=== PATIENT | male | born 1970 | race Caucasian/White ===

== ENCOUNTER → 2018-02-01 10:10 | Outpatient (CLI) | payer BC, SELFPAY ==
--- NOTE | 2018-02-01 10:17 | XR_ITS ---
XR KUB HISTORY: ITS.REASON: KIDNEY STONES ORDERING PHYSICIAN: Kendall Chaudhry MD PATIENT AGE: 47 years COMPARISON: 01/31/2018 FINDINGS: There is an 11 mm stone in the mid left ureter at the lateral to the L3 transverse process. A 4 mm stone is present in the mid aspect of the right kidney. Multiple pelvic phleboliths are noted. IMPRESSION: 1. 11-mm left mid ureteral stone 2. Right nephrolithiasis
== END ==
PROVIDERS: PCP Internal Medicine; Visit Provider Urology
DX: N20.1 Calculus of ureter (principal)
CPT/HCPCS: 74018

== ENCOUNTER → 2018-02-08 11:32 | Outpatient (CLI) | payer BC, SELFPAY ==
--- NOTE | 2018-02-08 11:34 | XR_ITS ---
XR KUB HISTORY: ITS.REASON: KIDNEY STONE ORDERING PHYSICIAN: Kendall Chaudhry MD PATIENT AGE: 47 years COMPARISON: 02/01/2018 FINDINGS: There are small punctate calculi in the mid and lower pole the left kidney. These measure up to 4 mm. Previously noted 11 mm ureteral stone is no longer apparent. There are multiple pelvic phleboliths. There is a 4 mm stone overlying the mid aspect of the right kidney. IMPRESSION: 1. Left proximal ureteral stone no longer apparent. 2. Bilateral nephrolithiasis
[2018-02-15 18:10] LABS: Ca oxalate dihydrate 20 % (.); Calcium phosphate 15 % (.)
[2018-02-15 20:00] LABS: Specimen Type Comment: (.)
[2018-02-15 20:01] LABS: Comment Note: (.)
== END ==
PROVIDERS: PCP Internal Medicine; Visit Provider Urology
DX: N20.1 Calculus of ureter (principal)
CPT/HCPCS: 74018; 82370

== ENCOUNTER 2022-06-30 20:57 | Emergency (ER) | payer BC, SELFPAY ==
[2022-06-30 20:58] VITALS: BP 230/110; PULSE 101; RESP 23; TEMP 36.4; O2SAT 100; BMI 34.0
--- NOTE | 2022-06-30 21:17 | CT_ITS ---
PROCEDURE INFORMATION: Exam: CT Abdomen And Pelvis Without Contrast Exam date and time: 06/30/2022 9:32 PM Age: 51 years old Clinical indication: Abdominal pain; Flank; Right; Additional info: R flank pain, HX kdney stones TECHNIQUE: Imaging protocol: Computed tomography of the abdomen and pelvis without contrast. Radiation optimization: All CT scans at this facility use at least one of these dose optimization techniques: automated exposure control; mA and/or kV adjustment per patient size (includes targeted exams where dose is matched to clinical indication); or iterative reconstruction. COMPARISON: [facility] CT abdomen pelvis wo con 01/31/2018 12:52 PM FINDINGS: Liver: Normal. No mass. Gallbladder and bile ducts: Normal. No calcified stones. No ductal dilation. Pancreas: Normal. No ductal dilation. Spleen: Normal. No splenomegaly. Adrenal glands: Normal. No mass. Kidneys and ureters: On axial image 108, there is a 7 mm stone at the right ureterovesical junction producing moderate right hydroureteronephrosis as well as mild perinephric and moderate periureteral edema. A few tiny nonobstructing caliceal stones are noted in the left kidney. Stomach and bowel: Unremarkable. No obstruction. No mucosal thickening. Appendix: No evidence of appendicitis. Intraperitoneal space: Unremarkable. No free air. No significant fluid collection. Vasculature: Unremarkable. No abdominal aortic aneurysm. Lymph nodes: Unremarkable. No enlarged lymph nodes. Urinary bladder: Unremarkable as visualized. Reproductive: Unremarkable as visualized. Bones/joints: Moderate disc space narrowing and uncovertebral spurring produce at least mild spinal stenosis at the L2-L3 disc level. Osseous alignment is normal. No acute fracture seen. Soft tissues: Unremarkable. IMPRESSION: 1. 7 mm right UVJ stone producing moderate right hydroureteronephrosis. Mild left nephrolithiasis also noted. 2. Moderate degenerative disc changes at the L2-L3 level
[2022-06-30 21:28] LABS: Basophils # 0.1 K/mm3 (0-0.2); Basophils % 1.5 % (0.1-2.0); Eosinophils # 0.2 K/mm3 (0.0-0.4); Eosinophils % 3.1 % (0.1-12.0); Hematocrit 47.3 % (42.0-52.0); Lymphocytes # 3.1 K/mm3 (0.7-4.5); Lymphocytes % 41.9 % (10-50); Mean Corpuscular HGB Conc 35.9 g/dL (31.8-35.4); Mean Corpuscular Hemoglobin 31.6 pg (27.0-31.2); Mean Platelet Volume 7.8 fl (7.4-10.4); Monocytes # 0.5 K/mm3 (0.1-1.0); Neutrophils # 3.5 K/mm3 (1.8-7.8); Neutrophils % 47.4 % (37.0-80.0); Platelet Count 372 K/mm3 (142-424); Red Blood Count 5.38 M/mm3 (4.60-6.20); Red Cell Distribution Width 13.1 % (11.5-17.5); White Blood Count 7.4 K/mm3 (4.8-10.8)
[2022-06-30 21:30] LABS: Alanine Aminotransferase 25 U/L (12-78); Albumin Level 4.7 g/dl (3.5-5.0); Albumin/Globulin Ratio 1.4 (1.1-1.8); Alkaline Phosphatase 152 U/L (38-126); Anion Gap 14.5 mEq/L (5-15); Aspartate Amino Transferase 32 U/L (17-59); Bilirubin,Total 0.7 mg/dl (0.2-1.3); Blood Urea Nitrogen 18 mg/dl (9-20); Calcium 9.3 mg/dl (8.4-10.2); Carbon Dioxide 25 mmol/L (22.0-30.0); Chloride 104 mmol/L (98-107); Creatinine Clearance Estimated 106 mL/min (50-200); Estimated Glomerular Filt Rate 64 ml/min (>60); GFR (African American) 77 ML/MIN (>60); Globulin 3.4 g/dL (1.3-3.2); Glucose 120 mg/dl (74-100); Potassium 3.5 mmoL/L (3.5-5.1); Sodium 140 mmol/L (136-145); Total Protein,Serum 8.1 g/dl (6.3-8.2)
--- NOTE | 2022-06-30 21:44 | HMH.EDABDPAI ---
Discharge Plan Disposition Patient Disposition: Home, Self-Care Prescriptions Prescriptions: New tamsulosin [Flomax] 0.4 mg capsule 0.4 mg PO DAILY Qty: 10 0RF Referrals Follow up/Referrals: Luis E Holt MD [Primary Care Provider] - See instructions Kendall Chaudhry MD [Referring] - See instructions Clinical Impressions Clinical Impression: Renal colic on right side Instructions Patient Instructions: DI for Kidney Stones Discharge ED Provider: Americo Rios Abdominal Pain HPI General Chief Complaint: Abdominal Pain Stated Complaint: possible kidney stones Time Seen by Provider: 06/30/22 21:44 Mode of Arrival: Family Vehicle Source of Information: Patient, Spouse and Medical Record Limitations: No Limitations Description of Symptoms (Recalled from ER Triage Doc. by RN): Pt co R flank pain that radiates down to his R groin. States he has a hx of kidney stones and saw Dr. Chaudhry in 2018. Pt states the pain came on suddenly at 1900 tonight. He had 1 episode of vomiting after taking Ibuprofen. State the pain just continued to worsen. Denies any fever. Denies any gross hematuria. History of Present Illness HPI narrative: acute onset of rt flank pain with hx of kidney stone - complaint: flank pain Onset (ago): hour(s) Consistency: colicky Location: R flank Severity: moderate Radiation: R flank Associated symptoms: nausea and vomiting Related Data Previous Rx's Medication Instructions Recorded tamsulosin 0.4 mg capsule (Flomax) 0.4 mg PO DAILY #10 caps 07/01/22 Allergies Allergy/AdvReac Type Severity Reaction Status Date / Time No Known Allergies Allergy Verified 02/08/18 11:53 [facility] Disclaimer: The information contained in this section may have been updated after the patient was seen, as this information can be updated by other users. Social History Smoking Status: Never smoker alcohol intake: never substance use type: denies use current occupational status: employed Travel in the last 8 weeks: None ROS Obtained: Yes All systems reviewed & no additional complaints except as documented Physical Exam General General appearance: alert Head Head exam: normocephalic Eye Eye exam: Present PERRL and EOMI ENT ENT exam: Present mucous membranes moist Neck Neck exam: Present trachea midline Respiratory Respiratory exam: Absent respiratory distress Cardiovascular Cardiovascular exam: Present regular rate Abdominal Exam Abdominal exam: Present soft Extremities Exam Extremities exam: Present full ROM Back Exam Back exam: Absent CVA tenderness (R) Neurological Exam Neurological exam: Present alert, oriented X3 and CN II-XII intact Psychiatric Psychiatric exam: Present normal affect Skin Skin exam: Absent rash Medical Decision Making Medical Records Medical records reviewed: Yes I reviewed the patient's medical records. Francesco Inquiry Pt receiving controlled substance: No Vital Signs: 06/30/22 20:58 06/30/22 22:03 06/30/22 22:31 Temperature 97.6 F Temperature Source Oral Pulse Rate 75 63 Pulse Rate [Right] 101 H Respiratory Rate 23 18 Blood Pressure 194/111 H 180/100 H Blood Pressure [Left Arm] 230/110 H Blood Pressure Mean 141 Blood Pressure Mean [Left Arm] 150 Blood Pressure Source Blood Pressure Source [Left Arm] Automatic Cuff Blood Pressure Position 02 Sat by Pulse Oximetry 100 95 95 Oxygen Delivery Method Room Air Room Air 06/30/22 23:00 06/30/22 23:23 06/30/22 23:30 Temperature Temperature Source Pulse Rate 60 73 56 L Pulse Rate [Right] Respiratory Rate 20 18 16 Blood Pressure 214/119 H 192/111 H 194/113 H Blood Pressure [Left Arm] Blood Pressure Mean 151 138 130 Blood Pressure Mean [Left Arm] Blood Pressure Source Blood Pressure Source [Left Arm] Blood Pressure Position 02 Sat by Pulse Oximetry 93 L 96 95 Oxygen Delivery Method 07/01/22 00:10 07/01/22 00:00 07/01/22 00:13 T
[2022-06-30 22:03] VITALS: BP 194/111; PULSE 75; RESP 18; O2SAT 95
[2022-06-30 22:31] VITALS: BP 180/100; PULSE 63; O2SAT 95
[2022-06-30 22:32] LABS: Microscopic, Urine URINE MICROSCOPIC (MICROSCOPIC)
[2022-06-30 22:33] LABS: Appearance,Urine CLEAR (Clear); Bilirubin,Urine Negative (Negative); Blood, Urine 1+ (Negative); Color,Urine STRAW (Yellow); Glucose,Urine (UA) Negative (Negative); Ketones,Urine Negative (Negative); Leukocyte Esterase,Urine Negative (Negative); Nitrate,Urine Negative (Negative); Protein,Urine 2+ (Negative); Urobilinogen,Urine 0.2 EU/dl (0.2)
[2022-06-30 23:00] VITALS: BP 214/119; PULSE 60; RESP 20; O2SAT 93
[2022-06-30 23:05] LABS: Amorphous Sediment,Urine 1+ /lpf; Sperm,Urine OCC /lpf; Squamous Epithelial Cell,Urine Occasional #/hpf (0-5)
[2022-06-30 23:23] VITALS: BP 192/111; PULSE 73; RESP 18; O2SAT 96
[2022-06-30 23:30] VITALS: BP 194/113; PULSE 56; RESP 16; O2SAT 95
[2022-07-01] VITALS: BP 207/109; PULSE 58; RESP 16; O2SAT 94
[2022-07-01 00:10] VITALS: BP 108/107; PULSE 68; RESP 18; TEMP 36.6; O2SAT 98
[2022-07-01 00:13] VITALS: BP 189/107; PULSE 54; RESP 16; O2SAT 95
--- NOTE | 2022-07-01 00:25 | PC.NURSE ---
ct scan disc given to pt's
== END 2022-07-01 00:51 | disposition home or self-care (01) ==
PROVIDERS: Emergency Provider Emergency Medicine; PCP Internal Medicine
DX: N23 Unspecified renal colic (principal)
CPT/HCPCS: 74176; 80053; 81001; 85025; 96361; 96374; 96375; 99285; J0131; J2405

== ENCOUNTER 2022-08-23 15:15 | Emergency (ER) | payer BC, SELFPAY ==
[2022-08-23 15:15] VITALS: RESP 19; O2SAT 100; BMI 28.6; BMI 28.7
--- NOTE | 2022-08-23 15:42 | PC.NURSE ---
Attending at bedside on patient arrival. Bleeding mostly controlled with pressure and gauze by this RN and Cuong RN. Sutures placed to stop bleeding by attending. Bleeding well controlled now. Attending is numbing area to complete sutures. Patient NAD. VSS.
--- NOTE | 2022-08-23 15:49 | HMH.EDGENADL ---
Discharge Plan Disposition Patient Disposition: Home, Self-Care Condition: Good Prescriptions Prescriptions: New hydrochlorothiazide 25 mg tablet 25 mg PO DAILY Qty: 30 1RF No Action hydrocodone-acetaminophen 5-325 mg tablet 1 tab PO TID Qty: 10 0RF tamsulosin [Flomax] 0.4 mg capsule 0.4 mg PO DAILY Qty: 10 0RF Activity Restrictions/Add. Instructions Additional Instructions/Restrictions: Take hydrochlorothiazide for blood pressure daily. Follow-up with your primary care provider regarding this visit to the emergency department and blood pressure control. If you have any other concerning signs or symptoms, return to the ER for further evaluation. Clinical Impressions Clinical Impression: Complex laceration of scalp Instructions Patient Instructions: DI for Laceration Repair Discharge ED Provider: Sky Harvey General Adult HPI General Chief complaint: Wound/Laceration Stated complaint: Arterial Bleed Time Seen by Provider: 08/23/22 15:48 Mode of Arrival: Wheelchair Source of Information: Patient Limitations: No Limitations Description of Symptoms (Recalled from ER Triage Doc. by RN): 51 M presents via wheelchair from Dr. Holt' office with his staff who report he was having sutures removed from his scalp s/p basal cell carcinoma excision. Patient had blood that started squirting out. Patient arrived with pulsatile bleeding which was mostly controlled with gauze and pressure. Patient a/o x3, GCS 15, NAD. Attending at bedside immediately. History of Present Illness HPI narrative: This is a 51-year-old male with history of carcinoma of frontal scalp who is presenting with arterial bleed. Patient was an outpatient facility today just prior to arrival and stitches were being removed from previous excision surgery and patient began having pulsatile bleeding. Pressure was held and patient was wheeled down to ER. Patient denies any pain, shortness of breath, vision changes, chest pain, nausea, vomiting, or any other trauma. No other concerns at this time. No anticoagulant use. Related Data Previous Rx's Medication Instructions Recorded hydrocodone 5 mg-acetaminophen 325 1 tab PO TID #10 tabs 07/01/22 mg tablet tamsulosin 0.4 mg capsule (Flomax) 0.4 mg PO DAILY #10 caps 07/01/22 hydrochlorothiazide 25 mg tablet 25 mg PO DAILY #30 tabs 08/23/22 Allergies Allergy/AdvReac Type Severity Reaction Status Date / Time No Known Allergies Allergy Verified 02/08/18 11:53 [facility] Disclaimer: The information contained in this section may have been updated after the patient was seen, as this information can be updated by other users. Social History (Updated 07/01/22 @ 00:26 by Americo Rios MD) Smoking Status: Never smoker alcohol intake: never substance use type: denies use current occupational status: employed Travel in the last 8 weeks: None ROS Obtained: Yes All systems reviewed & no additional complaints except as documented Physical Exam General General appearance: alert and in no apparent distress Head Head exam: other (2 cm surgical excision site overlying right frontal scalp at hairline. Pulsatile arterial bleed) Eye Eye exam: Present normal appearance, PERRL and EOMI ENT ENT exam: Present normal exam, normal oropharynx, mucous membranes moist, TM's normal bilaterally and normal external ear exam Neck Neck exam: Present normal inspection, full ROM and trachea midline; Absent meningismus or lymphadenopathy Chest Chest inspection: Present normal inspection and symmetric chest wall rise; Absent tenderness Respiratory Respiratory exam: Present normal lung sounds bilaterally; Absent respiratory distress Cardiovascular Cardiovascular exam: Present regular rate and normal rhythm; Absent JVD Abdominal Exam Abdominal exam: Present soft and normal bowel sounds; Absent distention, tenderness or guarding Extremities Exam Extremities exam: Present normal inspection, full
[2022-08-23 15:55] VITALS: BP 201/125; PULSE 72; RESP 16; O2SAT 98
[2022-08-23 15:57] VITALS: BP 201/125; PULSE 78; RESP 18; TEMP 36.8; O2SAT 97
--- NOTE | 2022-08-23 15:59 | PC.NURSE ---
notified ER MD of pt bp, pt reports he just recently started bp medications, states they are still working with it . Pt reports doesn't know the name of his bp medication but states he takes it one pill at night. Contacted clinic pharmacy to obtain name of medication pt is on. Notified ER . ER states to have pt f/u with pcp r/t his bp.
== END 2022-08-23 15:57 | disposition home or self-care (01) ==
LOC: ER 16:13
PROVIDERS: Emergency Provider Emergency Medicine; PCP Internal Medicine
DX: S01.01XA Laceration without foreign body of scalp, initial encounter (principal); C44.91 Basal cell carcinoma of skin, unspecified; X58.XXXA Exposure to other specified factors, initial encounter
CPT/HCPCS: 12001; 99283; 99284

== ENCOUNTER 2023-06-28 14:45 | Outpatient (CLI) | payer BC, SELFPAY ==
[2023-06-28 15:13] LABS: Basophils # 0.1 K/mm3 (0-0.2); Basophils % 1.1 % (0.1-2.0); Eosinophils # 0.3 K/mm3 (0.0-0.4); Eosinophils % 3.1 % (0.1-12.0); Hemoglobin 16.2 g/dL (14.1-18.0); Lymphocytes # 2.5 K/mm3 (0.7-4.5); Lymphocytes % 30.1 % (10-50); Mean Corpuscular Volume 88.9 fl (80-94); Mean Platelet Volume 7.7 fl (7.4-10.4); Monocytes # 0.6 K/mm3 (0.1-1.0); Monocytes % 6.8 % (1.7-9.3); Neutrophils # 4.9 K/mm3 (1.8-7.8); Neutrophils % 58.8 % (37.0-80.0); Platelet Count 259 K/mm3 (142-424); Red Blood Count 5.07 M/mm3 (4.60-6.20); Red Cell Distribution Width 13.2 % (11.5-17.5); White Blood Count 8.3 K/mm3 (4.8-10.8)
[2023-06-28 15:44] LABS: Chloride 104 mmol/L (98-107); Potassium 3.6 mmoL/L (3.5-5.1); Sodium 141 mmol/L (136-145)
[2023-06-28 15:46] LABS: Blood Urea Nitrogen 15 mg/dl (9-20); Estimated Glomerular Filt Rate 88 ml/min (>60); GFR (African American) 107 ML/MIN (>60)
[2023-06-28 15:47] LABS: Anion Gap 7.6 mEq/L (5-15); Calcium 8.8 mg/dl (8.4-10.2); Carbon Dioxide 33 mmol/L (22.0-30.0); Glucose 90 mg/dl (74-100)
== END 2023-06-28 23:59 ==
LOC: LAB 14:47
PROVIDERS: PCP Internal Medicine; Visit Provider Surgery
DX: C44.41 Basal cell carcinoma of skin of scalp and neck (principal)
CPT/HCPCS: 36415; 80048; 85025

== ENCOUNTER 2023-06-30 06:53 | Day surgery (SDC) | payer BC, SELFPAY ==
[2023-06-29 09:31] VITALS: BMI 28.4
[2023-06-30] VITALS (14 sets, daily range): BP systolic 165–197; BP diastolic 96–119; PULSE 62–67; RESP 16–18; TEMP 36.2–36.8; O2SAT 93–97
[2023-06-30] MEDS: LACTATED RINGERS 1000ML 1,000 ML 25 ML IV (07:04)
[2023-06-30] MEDS: CEFAZOLIN SODIUM 1 GM in 0.9 % SODIUM CHLORIDE 50 ML IV (07:37)
[2023-06-30] MEDS: LIDOCAINE 1% 20ML MDV 20 ML (07:56)
--- NOTE | 2023-06-30 08:02 | P.PNANES_ITS ---
[facility] Disclaimer: The information contained in this section may have been updated after the patient was seen, as this information can be updated by other users. Medical History Asthma HTN (hypertension) Surgical History History of extraction of renal calculus History of eye surgery Family History Other No significant family history Social History Smoking Status: Never smoker alcohol intake: never substance use type: denies use current occupational status: employed Travel in the last 8 weeks: None [facility] Anesthesia Checklist Patient Identification Patient Identification: Arm Band Structural Data Admitted From: Home Planned Operative Procedure/s: Excision of Right Scalp/Forehead Lesion Consent for Planned Operative Procedure(s) Verified: Yes Verified Documents: Surgical Consent and History and Physical NPO Status Verified Time NPO: 00:00 Additional verifications Anesthesia Reactions: No Hx Blood Transfusions: No Blood Transfusion Reaction: No Airway Assessment Mallampati Score:: Class II C-Spine Mobility Assessed: Yes TMJ Mobility Assessed: Yes Dentition: Good Dentition Neurological Assessment Level of Consciousness: Awake and Alert Anesthesia Plan Anesthesia Risk discussed: Yes Anesthesia Plan: Verified ASA Class: II Anesthesia Type: General
--- NOTE | 2023-06-30 08:47 | P.OP_ITS ---
Date of procedure: 06/30/23 Pre-op Diagnosis:: Right scalp/forehead basal cell carcinoma (1 cm) Post-op Diagnosis:: Same Procedure performed:: Excision of 1 cm right scalp/forehead basal cell carcinoma Surgeon:: Deniz Diaz MD DIRECTOR SERVICE:: José Valladares Anesthesia: LMA Estimated blood loss (mL): 15 Operative findings:: Lesion excised with at least 4 mm margin Operative note:: After informed consent was obtained the patient was taken to the operating room and placed in the supine position. General anesthesia with laryngeal mask airway was achieved. His right scalp/forehead region was prepped and draped in a sterile fashion. After infiltration with local anesthetic an elliptical incision was made around the lesion with at least a 4 mm margin. The lesion was excised in toto and passed off for pathologic evaluation after being marked for margin (short superior/long anterior). Electrocautery was utilized to achieve hemostasis. Electrocautery was also utilized to create superior and inferior flaps to allow for closure. 4-0 and 5-0 nylon was utilized to reapproximate the skin (combination of mattress and simple interrupted). Dressings were applied and the patient was transferred to recovery in stable condition after removal of his laryngeal mask airway. Condition: stable Disposition: PACU Specimens:: Right scalp/forehead basal cell carcinoma Complications:: No immediate
--- NOTE | 2023-06-30 08:49 | EXP.ANES.I ---
[facility] Anesthesia Record Part I Anesthesia Record I Intake, IV Amount: 900 Hydration: Adequate Estimated blood loss (mL): 10 Urine output (mL): 0 Blood Products used (#): none Blood Pressure: 176/100 SaO2: 93 Pulse Rate: 67 Airway Patency: Patent Respiratory Rate: 16 Temperature: 97.2 F Patient is:: Drowsy and Stable Stable to PACU at:: 08:45
[2023-06-30] MEDS: HYDRALAZINE 20MG/ML VIAL 5 MG IV (09:28)
[2023-06-30] MEDS: HYDROMORPHONE 2MG/ML SYRINGE 0.5 MG IV ×3 (09:36→09:46)
--- NOTE | 2023-06-30 09:41 | SUR.PHASEI ---
0930- rfeeback,tank farm operator at bedside to evaluate bp. Orders in MAR for diastolic remaining above 100.
--- NOTE | 2023-06-30 10:03 | SUR.PHASEI ---
0945- pt diastolic bp has been below 100 for 3 consecutive cycles. 0950- detailed report called to leanne yap in post op. Dressings cdi, VSS, pt pain level at a 3.
[2023-06-30] MEDS: LABETALOL 20MG/4ML SYRINGE 10 MG IV (10:10)
--- NOTE | 2023-06-30 10:32 | SUR.PHASEII ---
1010: Spoke with Dr. Holt about pt's blood pressure. States he is aware of the issue and an appointment was made for the patient on 07/05/23 at 2:30 to discuss management. Patient and spouse are aware and paper work was given with appt date and time.
--- NOTE | 2023-07-03 13:14 | EXP.ANES.II ---
[facility] Anesthesia Record Part II Anesthesia Record Part II Discharge Time: 09:50 Destination: Surgical Day Care (OP Surgery) PACU nurse assessment reviewed?: Yes Patient Condition:: Good Anesthesia Complications:: None Swallowing reflex intact?: Yes Airway Patency: Patent Cyanosis?: No Blood Pressure: 186/96 SaO2: 95 Respiratory Rate: 16 Pulse Rate: 62 Temperature: 98.3 F Mental Status: Alert & Oriented Pain level:: 3 Nausea and/or vomitting:: None Intake, IV Amount: 0 Hydration: Adequate
[2023-07-03 13:15] VITALS: BP 186/96; PULSE 62; RESP 16; TEMP 36.8; O2SAT 95
== END 2023-06-30 10:30 | disposition home or self-care (01) ==
PROVIDERS: PCP Internal Medicine; Visit Provider Surgery
PROC: (CPT 11621; principal; 2023-06-30 08:30)
DX: C44.41 Basal cell carcinoma of skin of scalp and neck (principal)
CPT/HCPCS: 11621; 96374; J2405

== ENCOUNTER 2023-09-05 15:31 | Outpatient (POV) | payer BC, SELFPAY | END 2023-09-05 23:59 | disposition home or self-care (01) | LOC: SC 15:31 | PROVIDERS: PCP Internal Medicine; Visit Provider Dermatology | DX: Z00.00 Encounter for general adult medical examination without abnormal findings (principal) ==